=== PATIENT | female | born 1985 | race Caucasian/White ===

== ENCOUNTER → 2016-10-22 | Outpatient (CLI) | payer BC ==
[2016-10-22 17:02] LABS: BASOPHILS # (AUTO) 0.03 10*3/UL; BASOPHILS % (AUTO) 0.5 % (0-1); EOSINOPHILS % (AUTO) 0.3 % (0-8); HEMATOCRIT 39.2 % (37.0-47.0); HEMOGLOBIN 13.6 g/dL (12.0-16.0); IMM GRAN % (AUTO) 0 % (0-5); IMM GRAN# (AUTO) 0 10*3/UL; LYMPHOCYTES # (AUTO) 2.56 10*3/uL; LYMPHOCYTES % (AUTO) 42.3 % (10-50); MEAN CORPUSCULAR HEMOGLOBIN 28.8 PG (27-31); MEAN CORPUSCULAR HGB CONC 34.7 g/dL (33-37); MEAN PLATELET VOLUME 9.9 FL (7.4-12.2); MONOCYTES # (AUTO) 0.38 10*3/UL (0.3-0.8); MONOCYTES % (AUTO) 6.3 % (5-15); NEUTROPHILS # (AUTO) 3.06 10*3/UL; NEUTROPHILS % (AUTO) 50.6 % (50-80); RDW COEFFICIENT OF VARIATION 12.6 % (11.5-14.5); RED BLOOD COUNT 4.73 10^6/uL (4.20-5.40); WHITE BLOOD COUNT 6.05 10^3/uL (4.8-10.8)
[2016-10-22 17:11] LABS: PLATELET MORPHOLOGY COMMENT NORMAL MORPHOLOGY (NORM)
[2016-10-22 17:22] LABS: ASPARTATE AMINO TRANSFERASE 30 IU/L (8-39); BILIRUBIN,TOTAL 0.3 mg/dL (0.3-1.2); BLOOD UREA NITROGEN 12 mg/dL (7-22); BUN/CREATININE RATIO 13.33 (6-20); CALCIUM 9.5 mg/dL (8.7-10.7); CHLORIDE 105 meq/L (98-112); CREATININE 0.9 mg/dL (0.50-1.20); EST GLOMERULAR FILTRATION > 60 (>60 ml/min/1.73m(2)); GLUCOSE 84 mg/dL (78-110); POTASSIUM 3.8 meq/L (3.8-5.2); SODIUM 140 meq/L (135-145); TOTAL PROTEIN 7.6 g/dL (6.1-8.0)
--- NOTE | 2016-10-22 19:08 | DI ---
CT ABD W/CN AND PELVIS W/CN,10/22/2016 4:56 PM: Clinical History: Right lower quadrant pain. Previous Exam: None at this facility. Findings: Multiple helically acquired CT images are obtained through the abdomen and pelvis with IV contrast, a nd demonstrate clear lung bases. Urinary bladder is unremarkable. Kidneys, adrenals, spleen, pancreas and liver are unremarkable. Patient is status post cholecystectom y. Patient is also status post uterus. There is no free air nor free fluid. There is moderate stool noted throughout the colon. Impression: No acute intra-abdominal pathology.
== END ==
LOC: CT 16:23
PROVIDERS: ATTEND Physician Assistant
DX: R10.84 Generalized abdominal pain (principal)
CPT/HCPCS: 36415; 74177; 80053; 83690; 85025; 86140

== ENCOUNTER → 2016-11-04 | Outpatient (CLI) | payer BC ==
--- NOTE | 2016-11-04 15:21 | DI ---
LUMBAR SPINE SERIES, 11/04/2016 12:57 PM: Clinical History: Lumbosacral radiculopathy. Previous Exam: 12/31/2012. Upright lateral flexion and extension views are submitted. The vertebral bodies are of normal height and size. The disc spaces are normal. There is a grade 1 reverse spondylolisthesis that is unchanged from the previous exam. There is no instability noted with flexion and extension maneuvers. The patie nt has gained weight between the 2 examinations. Readin. There is a grade 1 reverse spondylolisthesis at L5-S1. The L5-S1 disc space is of normal height a long with normal heights of the remaining lumbar disc spaces. 2. There is no instability with flexion and extension maneuvers.
--- NOTE | 2016-11-04 20:21 | DI ---
MRI LUMBAR SPINE SCAN WITHOUT IV CONTRAST, 11/04/2016 12:56 PM: Clinical History: Lumbosacral radiculopathy. Previous Exam: 08/30/2015. Technique: Sagittal and axial T2 weighted; sagittal T1 weighted and T2 STIR; and axial PD. The vertebral bodies are of normal height and size. There is mild to moderate disc space narrowing at L5-S1 with associated desiccation change. The remaining lumbar disc spaces are of normal height and signal pattern. The cord terminates at T12 and the conus medullaris is normal. The disc spaces from T 10-11 through L4-5 are normal. L5-S1 has a central bulging but not herniated disc with an associated broad-based midline disc annulus tear. There is no canal or neural foraminal stenosis. Readin. There is a midline bulging but not herniated disc without canal or neural foraminal stenosis at L 5-S1. There is also a disc annulus tear. 2. The disc spaces from T10-11 through L4-5 are normal.
== END ==
LOC: MRI 12:50
PROVIDERS: ATTEND Anesthesiology
DX: M54.17 Radiculopathy, lumbosacral region (principal); M43.17 Spondylolisthesis, lumbosacral region
CPT/HCPCS: 72100; 72148

== ENCOUNTER → 2017-03-26 | Outpatient (CLI) | payer BC ==
--- NOTE | 2017-03-27 10:02 | DI ---
US PELVIC COMPLETE (NON OB),03/26/2017 4:09 PM: Clinical History: Right ovarian cyst. Previous Exam: None at this facility. Findings: Multiple transabdominal grayscale and color Doppler sonographic images are obtained through the pelvi s. Patient is status post hysterectomy. Visualized portions of the cervix are unremarkable. The ovaries were not seen due to overlying bowel gas. There is no definite mass identified. Impression: No evidence of ovarian cyst on this exam.
== END ==
LOC: US 16:02
PROVIDERS: ATTEND Obstetrics & Gynecology Gynecology
DX: N83.201 Unspecified ovarian cyst, right side (principal)
CPT/HCPCS: 76856

== ENCOUNTER → 2017-04-03 | Outpatient (CLI) | payer BC ==
--- NOTE | 2017-04-03 09:17 | DI ---
US PELVIC-TRANSVAGINAL,04/03/2017 8:17 AM: Clinical History: Ovarian pain for 12 days Previous Exam: March 26, 2017 Findings: Transvaginal grayscale and color Doppler sonographic images are obtained through the pelvis, and demo nstrate a complex cystic mass within the right ovary. This was not seen on the prior exam. There is p reserved Doppler flow within the right ovary. The right ovary in its entirety measured 2.7 x 1.6 x 1. 7 cm. The cystic area appears to represent 2 separate cysts, and measures 18 x 13 mm. Impression: Normal right ovary for age. Left ovary not seen.
== END ==
LOC: US 08:12
PROVIDERS: ATTEND Obstetrics & Gynecology Gynecology
DX: N94.89 Other specified conditions associated with female genital organs and menstrual cycle (principal); N83.291 Other ovarian cyst, right side
CPT/HCPCS: 76830